=== PATIENT | female | born 1985 | race Caucasian/White ===

== ENCOUNTER 2018-10-09 12:44 | Inpatient (IN) | payer OTHER ==
[2018-10-09] MEDS ORDERED: ACETAMINOPHEN 325 MG TAB PO (14:00)
[2018-10-09] MEDS ORDERED: HYDROCODONE/APAP (5/325) TAB PO (14:00)
[2018-10-09] MEDS ORDERED: NACL 0.9% 3 ML SYG IV (14:00)
[2018-10-09 14:59] LABS: ABNORMAL IP MESSAGE 1; HEMATOCRIT 33.9 % (37.0-47.0); HEMOGLOBIN 11.8 g/dl (12.0-16.0); MEAN CORPUSCULAR HEMOGLOBIN 29.4 pg (29.0-33.0); MEAN CORPUSCULAR HGB CONC 34.8 g/dl (32.0-37.0); MEAN CORPUSCULAR VOLUME 84.3 fl (82.0-101.0); MEAN PLATELET VOLUME 9.6 fl (7.4-10.4); PLATELET COUNT 54 10^3/UL (140-415); RED BLOOD COUNT 4.02 10^6/ul (4.20-5.40); RED CELL DISTRIBUTION WIDTH 14.8 % (11.5-14.5)
[2018-10-09 14:59] LABS: WHITE BLOOD COUNT 4.4 10^3/ul (4.8-10.8)
[2018-10-09 15:00] LABS: ADD MAN DIFF? YES; POSITIVE DIFF @See below
[2018-10-09] MEDS: morphine 2 MG INJ IV ×2 (15:13→19:30)
[2018-10-09 15:20] LABS: ALANINE AMINOTRANSFERASE 80 IU/L (13-69); ALBUMIN 3.7 g/dl (3.3-4.9); ALKALINE PHOSPHATASE 84 IU/L (42-121); ANION GAP 7 (5-13); ASPARTATE AMINO TRANSFERASE 181 IU/L (15-46); BILIRUBIN,INDIRECT 0.5 mg/dl (0-1.1); BILIRUBIN,TOTAL 0.5 mg/dl (0.2-1.3); BLOOD UREA NITROGEN 3 mg/dl (7-20); CALCIUM 8.1 mg/dl (8.4-10.2); CARBON DIOXIDE 28 mmol/L (21-31); CHLORIDE 97 mmol/L (97-110); CREATININE 0.57 mg/dl (0.44-1.00); Estimated GFR > 60 mL/min (>60); GLUCOSE 102 mg/dl (70-220); LIPASE 160 U/L (23-300); MAGNESIUM 1.4 mg/dl (1.7-2.5); POTASSIUM 3.4 mmol/L (3.5-5.1); SODIUM 132 mmol/L (135-144); TOTAL PROTEIN 7.4 g/dl (6.1-8.1)
[2018-10-09 15:33] LABS: BASOPHILS % 0.7 % (0.0-2.0); EOSINOPHILS # 0.1 10^3/ul (0.0-0.5); EOSINOPHILS % 1.1 % (0.0-7.0); LYMPHOCYTES # 0.8 10^3/ul (0.8-2.9); LYMPHOCYTES % 17.4 % (15.0-51.0); MONOCYTE # 0.4 10^3/ul (0.3-0.9); NEUTROPHIL # 3.2 10^3/ul (1.6-7.5); NEUTROPHILS % 71.6 % (39.0-77.0)
[2018-10-09 15:43] LABS: BAND NEUTROPHILS % (M) 2 % (0-4); BASOPHILS % (M) 1 % (0-2); EOSINOPHILS % (M) 3 % (0-7); LYMPHOCYTES #M 0.5 10^3/ul (0.8-2.9); LYMPHOCYTES % (M) 13 % (15-51); MONOCYTE #M 0.1 10^3/ul (0.3-0.9); MONOCYTES % (M) 4 % (0-11); PLATELET ESTIMATE DECREASED; POLYCHROMASIA 1+ (0-0); REACTIVE LYMPHOCYTES #M 0.1 10^3/ul (0.0-0.0); REACTIVE LYMPHOCYTES% (M) 3 % (0-0); SEG NEUT #M 3.3 10^3/ul (1.6-7.5); SEGMENTED NEUTROPHILS (M) % 74 % (39-77); SMUDGE%M 8 % (0-0)
[2018-10-09] MEDS: CHLORDIAZEPOXIDE 25 MG CAP PO ×2 (16:00→22:45)
[2018-10-09] MEDS: DEXTROSE 5%-0.45% NACL 1,000 ML IV (16:00)
[2018-10-09] MEDS ORDERED: hydrALAzine 20 MG INJ IV (17:00)
[2018-10-09] MEDS ORDERED: LABETALOL HCL 20MG INJ IV (17:00)
[2018-10-09] MEDS ORDERED: FENTAnyl 50 MCG/ML VIAL IV (17:00)
[2018-10-09] MEDS: MAGNESIUM SULFATE 2 GM/50 ML 50 ML IVPB ×2 (17:00→22:29)
[2018-10-09] MEDS ORDERED: ONDANSETRON 4 MG INJ IV (17:00)
[2018-10-09] MEDS ORDERED: DIPHENHYDRAMINE 50 MG INJ IV (17:00)
[2018-10-09] MEDS ORDERED: EPHEDrine SULFATE 50 MG/5 ML SYG IV (17:00)
[2018-10-09] MEDS ORDERED: MEPERIDINE 25 MG INJ IV (17:00)
[2018-10-09] MEDS ORDERED: ALBUTEROL 0.083% (NEB) 2.5 MG/3 ML AMP HHN (17:00)
[2018-10-09] MEDS: PROPOFOL 40 ML (17:58)
[2018-10-09] MEDS: LIDOCAINE 2% (SDV) 5 ML INJ (17:58)
[2018-10-09] MEDS: PANTOPRAZOLE 40 MG INJ IV (18:17)
[2018-10-09] MEDS: MULTIVITAMINS 10 ML, THIAMINE 100 MG, FOLIC ACID 1 MG in SOD CHLORIDE 0.9% 1,000 ML IVPB (18:17)
[2018-10-09] MEDS: POTASSIUM CHLORIDE 100 ML IVPB ×2 (18:17→22:00)
[2018-10-09] MEDS: METOCLOPRAMIDE 10 MG INJ IV (18:17)
[2018-10-09] MEDS: ONDANSETRON 4 MG INJ IV (19:31)
[2018-10-09] MEDS: POTASSIUM CHLORIDE (SR) 20 MEQ TAB PO ×2 (22:45→22:54)
[2018-10-10] MEDS: METOCLOPRAMIDE 10 MG INJ IV ×5 (00:11→23:56)
[2018-10-10] MEDS: DEXTROSE 5%-0.45% NACL 1,000 ML IV ×2 (05:20→09:11)
[2018-10-10] MEDS: PANTOPRAZOLE 40 MG INJ IV ×2 (05:48→17:44)
[2018-10-10 08:09] LABS: ADD MAN DIFF? NO
[2018-10-10 08:12] LABS: WHITE BLOOD COUNT 3.5 10^3/ul (4.8-10.8)
[2018-10-10 08:12] LABS: ABNORMAL IP MESSAGE 1; BASOPHILS % 0.9 % (0.0-2.0); EOSINOPHILS # 0.1 10^3/ul (0.0-0.5); EOSINOPHILS % 2.6 % (0.0-7.0); HEMATOCRIT 40.3 % (37.0-47.0); HEMOGLOBIN 13.5 g/dl (12.0-16.0); LYMPHOCYTES # 0.6 10^3/ul (0.8-2.9); LYMPHOCYTES % 16.8 % (15.0-51.0); MEAN CORPUSCULAR HEMOGLOBIN 28.8 pg (29.0-33.0); MEAN CORPUSCULAR HGB CONC 33.5 g/dl (32.0-37.0); MEAN CORPUSCULAR VOLUME 86.1 fl (82.0-101.0); MEAN PLATELET VOLUME 11.2 fl (7.4-10.4); MONOCYTE # 0.3 10^3/ul (0.3-0.9); MONOCYTES % 7.8 % (0.0-11.0); NEUTROPHIL # 2.5 10^3/ul (1.6-7.5); NEUTROPHILS % 71.6 % (39.0-77.0); PLATELET COUNT 70 10^3/UL (140-415); RED BLOOD COUNT 4.68 10^6/ul (4.20-5.40); RED CELL DISTRIBUTION WIDTH 14.8 % (11.5-14.5)
[2018-10-10] MEDS: CHLORDIAZEPOXIDE 25 MG CAP PO ×2 (08:12→21:25)
[2018-10-10 08:22] LABS: POSITIVE DIFF @See below
[2018-10-10 08:44] LABS: ALANINE AMINOTRANSFERASE 61 IU/L (13-69); ALBUMIN 4.2 g/dl (3.3-4.9); ALBUMIN/GLOBULIN RATIO 1.07; ALKALINE PHOSPHATASE 101 IU/L (42-121); ANION GAP 8 (5-13); ASPARTATE AMINO TRANSFERASE 138 IU/L (15-46); BILIRUBIN,INDIRECT 0.5 mg/dl (0-1.1); BILIRUBIN,TOTAL 0.5 mg/dl (0.2-1.3); BLOOD UREA NITROGEN 3 mg/dl (7-20); CARBON DIOXIDE 28 mmol/L (21-31); CHLORIDE 100 mmol/L (97-110); CREATININE 0.66 mg/dl (0.44-1.00); Estimated GFR > 60 mL/min (>60); GLUCOSE 97 mg/dl (70-220); MAGNESIUM 2.5 mg/dl (1.7-2.5); SODIUM 136 mmol/L (135-144); TOTAL PROTEIN 8.1 g/dl (6.1-8.1)
[2018-10-10] MEDS: MULTIVITAMINS 10 ML, THIAMINE 100 MG, FOLIC ACID 1 MG in SOD CHLORIDE 0.9% 1,000 ML IVPB (09:00)
[2018-10-10] MEDS: SUCRALFATE (100 MG/ML) 10ML CUP GTB ×3 (15:17→21:24)
[2018-10-10] MEDS: LIDOCAINE/MYLANTA 40 ML BTL PO (15:42)
[2018-10-11] MEDS: PANTOPRAZOLE 40 MG INJ IV (05:36)
[2018-10-11] MEDS: METOCLOPRAMIDE 10 MG INJ IV (05:36)
[2018-10-11 06:18] LABS: ABNORMAL IP MESSAGE 1; ADD MAN DIFF? NO; BASOPHILS % 0.5 % (0.0-2.0); EOSINOPHILS # 0.2 10^3/ul (0.0-0.5); EOSINOPHILS % 4.5 % (0.0-7.0); HEMATOCRIT 38.4 % (37.0-47.0); HEMOGLOBIN 13.3 g/dl (12.0-16.0); LYMPHOCYTES # 0.7 10^3/ul (0.8-2.9); LYMPHOCYTES % 17.3 % (15.0-51.0); MEAN CORPUSCULAR HEMOGLOBIN 29.8 pg (29.0-33.0); MEAN CORPUSCULAR HGB CONC 34.6 g/dl (32.0-37.0); MEAN CORPUSCULAR VOLUME 85.9 fl (82.0-101.0); MEAN PLATELET VOLUME 11.4 fl (7.4-10.4); MONOCYTE # 0.3 10^3/ul (0.3-0.9); NEUTROPHIL # 2.6 10^3/ul (1.6-7.5); NEUTROPHILS % 68.4 % (39.0-77.0); PLATELET COUNT 77 10^3/UL (140-415); RED BLOOD COUNT 4.47 10^6/ul (4.20-5.40); RED CELL DISTRIBUTION WIDTH 14.7 % (11.5-14.5)
[2018-10-11 06:18] LABS: WHITE BLOOD COUNT 3.8 10^3/ul (4.8-10.8)
[2018-10-11 06:35] LABS: POSITIVE DIFF @See below
[2018-10-11 08:05] LABS: OCCULT BLOOD STOOL NEGATIVE (NEGATIVE)
[2018-10-11 08:10] LABS: ALANINE AMINOTRANSFERASE 63 IU/L (13-69); ALBUMIN 3.6 g/dl (3.3-4.9); ALKALINE PHOSPHATASE 74 IU/L (42-121); ANION GAP 5 (5-13); ASPARTATE AMINO TRANSFERASE 109 IU/L (15-46); BILIRUBIN,INDIRECT 0.4 mg/dl (0-1.1); BILIRUBIN,TOTAL 0.4 mg/dl (0.2-1.3); BLOOD UREA NITROGEN 4 mg/dl (7-20); CARBON DIOXIDE 28 mmol/L (21-31); CHLORIDE 103 mmol/L (97-110); CREATININE 0.48 mg/dl (0.44-1.00); Estimated GFR > 60 mL/min (>60); GLUCOSE 99 mg/dl (70-220); MAGNESIUM 2.2 mg/dl (1.7-2.5); POTASSIUM 3.9 mmol/L (3.5-5.1); SODIUM 136 mmol/L (135-144); TOTAL PROTEIN 7.2 g/dl (6.1-8.1)
[2018-10-11] MEDS: SUCRALFATE (100 MG/ML) 10ML CUP GTB (09:57)
[2018-10-11] MEDS: CHLORDIAZEPOXIDE 25 MG CAP PO (09:57)
[2018-10-11] MEDS ORDERED: LORAZEPAM 2 MG INJ IV (10:30)
[2018-10-11] MEDS: DEXTROSE 5%-0.45% NACL 1,000 ML IV ×2 (11:50→21:48)
[2018-10-11] MEDS: LUBIPROSTONE 24 MCG CAP PO ×2 (11:50→20:49)
[2018-10-11] MEDS: METOCLOPRAMIDE 10 MG TAB PO ×2 (14:29→21:57)
[2018-10-11] MEDS: SUCRALFATE (100 MG/ML) 10ML CUP PO ×3 (14:29→20:49)
[2018-10-11] MEDS: METOPROLOL 5 MG INJ IV (17:42)
[2018-10-11] MEDS: PANTOPRAZOLE (EC) 40 MG TAB PO (17:42)
[2018-10-12] MEDS: PANTOPRAZOLE (EC) 40 MG TAB PO ×2 (05:26→17:47)
[2018-10-12] MEDS: METOCLOPRAMIDE 10 MG TAB PO ×3 (05:26→22:09)
[2018-10-12 06:42] LABS: ALANINE AMINOTRANSFERASE 62 IU/L (13-69); ALBUMIN 3.4 g/dl (3.3-4.9); ALBUMIN/GLOBULIN RATIO 1.06; ALKALINE PHOSPHATASE 66 IU/L (42-121); ANION GAP 7 (5-13); ASPARTATE AMINO TRANSFERASE 98 IU/L (15-46); BILIRUBIN,INDIRECT 0.2 mg/dl (0-1.1); BILIRUBIN,TOTAL 0.2 mg/dl (0.2-1.3); BLOOD UREA NITROGEN 8 mg/dl (7-20); CALCIUM 8.7 mg/dl (8.4-10.2); CARBON DIOXIDE 26 mmol/L (21-31); CHLORIDE 102 mmol/L (97-110); CREATININE 0.45 mg/dl (0.44-1.00); Estimated GFR > 60 mL/min (>60); GLUCOSE 96 mg/dl (70-220); POTASSIUM 3.9 mmol/L (3.5-5.1); SODIUM 135 mmol/L (135-144); TOTAL PROTEIN 6.6 g/dl (6.1-8.1)
[2018-10-12] MEDS: LUBIPROSTONE 24 MCG CAP PO ×2 (08:28→22:09)
[2018-10-12] MEDS: SUCRALFATE (100 MG/ML) 10ML CUP PO ×4 (08:28→22:09)
[2018-10-12] MEDS: DEXTROSE 5%-0.45% NACL 1,000 ML IV (08:28)
[2018-10-12] MEDS: CHLORDIAZEPOXIDE 25 MG CAP PO (08:30)
[2018-10-13] MEDS: DEXTROSE 5%-0.45% NACL 1,000 ML IV ×2 (00:03→13:20)
[2018-10-13] MEDS: METOCLOPRAMIDE 10 MG TAB PO ×2 (06:33→14:00)
[2018-10-13] MEDS: PANTOPRAZOLE (EC) 40 MG TAB PO (06:33)
[2018-10-13 08:02] LABS: ALANINE AMINOTRANSFERASE 51 IU/L (13-69); ALBUMIN 3.8 g/dl (3.3-4.9); ALBUMIN/GLOBULIN RATIO 1.02; ALKALINE PHOSPHATASE 81 IU/L (42-121); ANION GAP 4 (5-13); ASPARTATE AMINO TRANSFERASE 73 IU/L (15-46); BILIRUBIN,INDIRECT 0.1 mg/dl (0-1.1); BILIRUBIN,TOTAL 0.1 mg/dl (0.2-1.3); BLOOD UREA NITROGEN 6 mg/dl (7-20); CALCIUM 9.2 mg/dl (8.4-10.2); CARBON DIOXIDE 28 mmol/L (21-31); CHLORIDE 104 mmol/L (97-110); CREATININE 0.54 mg/dl (0.44-1.00); Estimated GFR > 60 mL/min (>60); GLUCOSE 99 mg/dl (70-220); POTASSIUM 4.4 mmol/L (3.5-5.1); SODIUM 136 mmol/L (135-144); TOTAL PROTEIN 7.5 g/dl (6.1-8.1)
[2018-10-13] MEDS: SUCRALFATE (100 MG/ML) 10ML CUP PO ×2 (08:28→13:35)
[2018-10-13] MEDS: LUBIPROSTONE 24 MCG CAP PO (08:28)
== END 2018-10-13 14:03 | disposition home or self-care (01) | DRG 377 ==
LOC: TEL 12:44
PROC: 0DB68ZX Excision of Stomach, Via Natural or Artificial Opening Endoscopic, Diagnostic (ICD-10-PCS; principal; 2018-10-09 17:00)
DX: K25.4 Chronic or unspecified gastric ulcer with hemorrhage (principal); K85.90 Acute pancreatitis without necrosis or infection, unspecified; D62 Acute posthemorrhagic anemia; K70.10 Alcoholic hepatitis without ascites; D69.6 Thrombocytopenia, unspecified; F10.10 Alcohol abuse, uncomplicated; K31.84 Gastroparesis; K59.00 Constipation, unspecified; K29.51 Unspecified chronic gastritis with bleeding
CPT/HCPCS: 80053; 82270; 83690; 83735; 85025; 87081; 87338; 88305; 88312

== ENCOUNTER 2019-01-14 05:25 | Emergency (ER) | payer OTHER ==
[2019-01-14] MEDS: SOD CHLORIDE 0.9% 1,000 ML IV ×2 (05:49→06:38)
[2019-01-14] MEDS: morphine 4 MG/ML VIAL IV (05:49)
[2019-01-14] MEDS: ONDANSETRON 4 MG INJ IV (05:49)
[2019-01-14 05:52] LABS: ADD MAN DIFF? NO
[2019-01-14 05:55] LABS: HEMATOCRIT 38.4 % (37.0-47.0); HEMOGLOBIN 13.8 g/dl (12.0-16.0); LYMPHOCYTES # 1.4 10^3/ul (0.8-2.9); LYMPHOCYTES % 34.7 % (15.0-51.0); MEAN CORPUSCULAR HGB CONC 35.9 g/dl (32.0-37.0); MEAN CORPUSCULAR VOLUME 80.7 fl (82.0-101.0); MEAN PLATELET VOLUME 9.7 fl (7.4-10.4); MONOCYTE # 0.3 10^3/ul (0.3-0.9); MONOCYTES % 7.2 % (0.0-11.0); NEUTROPHIL # 2.3 10^3/ul (1.6-7.5); NEUTROPHILS % 56.9 % (39.0-77.0); PLATELET COUNT 120 10^3/UL (140-415); RED BLOOD COUNT 4.76 10^6/ul (4.20-5.40); RED CELL DISTRIBUTION WIDTH 13.2 % (11.5-14.5)
[2019-01-14 06:00] LABS: ADD UMIC YES; UR ASCORBIC ACID NEGATIVE (NEGATIVE); UR BACTERIA FEW /HPF (NONE SEEN); UR BILIRUBIN (Dip) NEGATIVE (NEGATIVE); UR BLOOD (Dip) 1+ mg/dL (NEGATIVE); UR CLARITY SLIGHTLY CLOUDY (CLEAR); UR COLOR YELLOW (YELLOW); UR GLUCOSE (Dip) NEGATIVE (NEGATIVE); UR KETONES (Dip) TRACE mg/dL (NEGATIVE); UR LEUKOCYTE ESTERASE (Dip) NEGATIVE Leu/ul (NEGATIVE); UR NITRITE (Dip) NEGATIVE (NEGATIVE); UR RBC 2 /HPF (0-5); UR SPECIFIC GRAVITY (Dip) 1.018 (1.003-1.030); UR SQUAMOUS EPITHELIAL CELL FEW /HPF (FEW); UR TOTAL PROTEIN (Dip) 2+ mg/dl (NEGATIVE); UR UROBILINOGEN (Dip) 1+ mg/dL (NEGATIVE); UR WBC 4 /HPF (0-5)
[2019-01-14] MEDS: FAMOTIDINE 20 MG INJ IV (06:11)
[2019-01-14] MEDS: METOCLOPRAMIDE 10 MG INJ IV (06:11)
[2019-01-14 06:19] LABS: ALANINE AMINOTRANSFERASE 25 IU/L (13-69); ALBUMIN 4.6 g/dl (3.3-4.9); ALBUMIN/GLOBULIN RATIO 1.24; ALKALINE PHOSPHATASE 108 IU/L (42-121); ANION GAP 15 (5-13); ASPARTATE AMINO TRANSFERASE 56 IU/L (15-46); BILIRUBIN,INDIRECT 0.8 mg/dl (0-1.1); BILIRUBIN,TOTAL 0.8 mg/dl (0.2-1.3); BLOOD UREA NITROGEN 10 mg/dl (7-20); CARBON DIOXIDE 21 mmol/L (21-31); CHLORIDE 100 mmol/L (97-110); CREATININE 0.64 mg/dl (0.44-1.00); Estimated GFR > 60 mL/min (>60); GLUCOSE 118 mg/dl (70-220); LIPASE 135 U/L (23-300); SODIUM 136 mmol/L (135-144); TOTAL PROTEIN 8.3 g/dl (6.1-8.1)
[2019-01-14] MEDS: BELLADONNA/PHENOBARBITAL TAB PO (06:38)
[2019-01-14] MEDS: LIDOCAINE/MYLANTA 40 ML BTL PO (06:38)
[2019-01-14] MEDS: THIAMINE 100 MG TAB PO (06:38)
[2019-01-14] MEDS: LORAZEPAM 2 MG INJ IV (07:15)
== END 2019-01-14 08:40 | disposition home or self-care (01) ==
LOC: E/R 05:25
DX: K29.20 Alcoholic gastritis without bleeding (principal)
CPT/HCPCS: 36415; 71045; 80053; 81001; 81025; 83690; 85025; 96374; 96375; 99284-25

== ENCOUNTER 2019-01-17 02:51 | Emergency (ER) | payer OTHER ==
[2019-01-17] MEDS: LORAZEPAM 1 MG TAB PO (03:47)
[2019-01-17] MEDS: LIDOCAINE/MYLANTA 40 ML BTL PO (03:47)
[2019-01-17] MEDS: BELLADONNA/PHENOBARBITAL TAB PO (03:47)
== END 2019-01-17 04:00 | disposition home or self-care (01) ==
LOC: E/R 02:51
DX: G47.00 Insomnia, unspecified (principal); R06.00 Dyspnea, unspecified
CPT/HCPCS: 99283; Z7502

== ENCOUNTER 2019-04-03 18:51 | Emergency (ER) | payer OTHER | END 2019-04-03 20:45 | disposition home or self-care (01) | LOC: FTE 18:51 | DX: I82.712 Chronic embolism and thrombosis of superficial veins of left upper extremity (principal) | CPT/HCPCS: 93971; 99284-25 ==

== ENCOUNTER 2019-05-20 21:21 | Emergency (ER) | payer OTHER ==
[2019-05-20] MEDS: LIDOCAINE/MYLANTA 40 ML BTL PO (22:35)
[2019-05-20] MEDS: BELLADONNA/PHENOBARBITAL TAB PO (22:35)
[2019-05-20] MEDS: ONDANSETRON (ODT) 4 MG TAB ODT (22:35)
[2019-05-20] MEDS: FAMOTIDINE 20 MG TAB PO (22:35)
[2019-05-21 00:08] LABS: ADD MAN DIFF? NO
[2019-05-21 00:10] LABS: WHITE BLOOD COUNT 5.6 10^3/ul (4.8-10.8)
[2019-05-21 00:10] LABS: BASOPHILS % 0.7 % (0.0-2.0); EOSINOPHILS % 0.2 % (0.0-7.0); HEMATOCRIT 35.3 % (37.0-47.0); HEMOGLOBIN 12.3 g/dl (12.0-16.0); LYMPHOCYTES # 1.3 10^3/ul (0.8-2.9); LYMPHOCYTES % 22.6 % (15.0-51.0); MEAN CORPUSCULAR HEMOGLOBIN 28.7 pg (29.0-33.0); MEAN CORPUSCULAR HGB CONC 34.8 g/dl (32.0-37.0); MEAN CORPUSCULAR VOLUME 82.3 fl (82.0-101.0); MEAN PLATELET VOLUME 9.1 fl (7.4-10.4); MONOCYTE # 0.4 10^3/ul (0.3-0.9); NEUTROPHIL # 3.9 10^3/ul (1.6-7.5); NEUTROPHILS % 69.1 % (39.0-77.0); PLATELET COUNT 140 10^3/UL (140-415); RED BLOOD COUNT 4.29 10^6/ul (4.20-5.40); RED CELL DISTRIBUTION WIDTH 14.3 % (11.5-14.5)
[2019-05-21] MEDS: SOD CHLORIDE 0.9% 1,000 ML IV (00:10)
[2019-05-21] MEDS: morphine 4 MG/ML VIAL IV (00:11)
[2019-05-21] MEDS: ONDANSETRON 4 MG INJ IV (00:11)
[2019-05-21 00:27] LABS: ALANINE AMINOTRANSFERASE 24 IU/L (13-69); ALBUMIN 4.2 g/dl (3.3-4.9); ALKALINE PHOSPHATASE 76 IU/L (42-121); ANION GAP 7 (5-13); ASPARTATE AMINO TRANSFERASE 44 IU/L (15-46); BILIRUBIN,INDIRECT 0.9 mg/dl (0-1.1); BILIRUBIN,TOTAL 0.9 mg/dl (0.2-1.3); BLOOD UREA NITROGEN 11 mg/dl (7-20); CARBON DIOXIDE 26 mmol/L (21-31); CHLORIDE 100 mmol/L (97-110); CREATININE 0.62 mg/dl (0.44-1.00); Estimated GFR > 60 mL/min (>60); GLUCOSE 89 mg/dl (70-220); LIPASE 90 U/L (23-300); POTASSIUM 3.9 mmol/L (3.5-5.1); SODIUM 133 mmol/L (135-144); TOTAL PROTEIN 7.7 g/dl (6.1-8.1)
== END 2019-05-21 02:03 | disposition home or self-care (01) ==
LOC: E/R 05-21 02:03
DX: K27.9 Peptic ulcer, site unspecified, unspecified as acute or chronic, without hemorrhage or perforation (principal)
CPT/HCPCS: 36415; 76705; 80053; 81025; 83690; 85025; 96361; 96374; 96375; 99285-25